=== PATIENT | male | born 1950 | race Caucasian/White ===

== ENCOUNTER 2020-02-01 09:33 | Outpatient (CLI) | payer MEDICARE ==
--- NOTE | 2020-02-01 09:50 | RAD ---
RIGHT SHOUDLER 3 VIEWS: HISTORY: Shoulder pain. FINDINGS: No evidence of fracture or dislocation. AC joint normally aligned. There is nodular opacity in the right apex which is best appreciated on recent CT chest of 09/21/2019. IMPRESSION: No acute osseous abnormality identified. POS: [facility]
== END 2020-02-01 09:34 | disposition home or self-care (01) ==
LOC: BICRAD 09:33
PROVIDERS: ATTEND Nurse Practitioner Family
DX: S49.91XA Unspecified injury of right shoulder and upper arm, initial encounter (principal)

== ENCOUNTER 2020-08-10 10:36 | Outpatient (CLI) | payer MEDICARE | END 2020-08-10 10:37 | disposition home or self-care (01) | LOC: BICMRI 10:36 | PROVIDERS: ATTEND Nurse Practitioner Family | DX: S49.91XD Unspecified injury of right shoulder and upper arm, subsequent encounter (principal); M77.8 Other enthesopathies, not elsewhere classified; M81.0 Age-related osteoporosis without current pathological fracture ==

== ENCOUNTER 2020-09-19 07:42 | Outpatient (CLI) | payer MEDICARE, OTHER | END 2020-09-19 07:43 | disposition home or self-care (01) | LOC: BICCT 07:42 | PROVIDERS: ATTEND Internal Medicine Critical Care Medicine | DX: R91.8 Other nonspecific abnormal finding of lung field (principal); J43.9 Emphysema, unspecified; K76.9 Liver disease, unspecified | CPT/HCPCS: 71250 ==